=== PATIENT | male | born 1980 | race Caucasian/White ===

== ENCOUNTER 2019-09-01 20:57 | Emergency (ER) | payer BC, SELFPAY ==
[2019-09-01 20:59] VITALS: BP 162/89; PULSE 80; RESP 16; TEMP 36.6; O2SAT 99
--- NOTE | 2019-09-01 21:03 | ECG_ITS ---
Measurements Intervals [place] Rate: 82 P: 40 OH: 171 QRS: 7 QRSD: 101 T: 29 QT: 357 QTc: 418 Interpretive Statements SINUS RHYTHM NORMAL ECG Electronically Signed On 09-02-2019 7:06:13 [employer] by Parmjit Garcia D.O.
[2019-09-01 21:22] LABS: Basophils Percent Auto 0.6 % (0.2-1.2); Eosinophils Absolute Auto 0.3 K/mm3 (0-0.3); Eosinophils Percent Auto 4.3 % (0-4.4); Hematocrit 43.1 % (42.0-52.0); Hemoglobin 15.1 g/dL (14.0-18.0); Immature Granulocyte Absolute 0.02 K/mm3 (0.00-0.031); Immature Granulocyte Percent A 0.3 % (0-0.5); Lymphocytes Absolute Auto 2.27 K/mm3 (0.9-3.2); Mean Corpuscular Hemoglobin 32.4 pg (26-34); Mean Corpuscular Volume 92.5 fl (80-100); Mean Platelet Volume 11.1 fl (7.4-10.4); Monocytes Absolute Auto 0.6 K/mm3 (0.1-0.6); Monocytes Percent Auto 8.4 % (2.6-8.5); Neutrophils Absolute Auto 3.5 K/mm3 (1.3-6.7); Neutrophils Percent Auto 52.4 % (45.5-73.1); Platelet Count Result 204 k/mm3 (150-375); Red Blood Count 4.66 M/mm3 (4.6-6.20); Red Cell Distribution Width 13.2 % (11.5-14.5); White Blood Count 6.7 K/mm3 (4.5-10.0)
[2019-09-01 21:33] LABS: Alanine Aminotransferase 38 U/L (4-50); Albumin Level 4.5 g/dL (3.5-5.1); Alkaline Phosphatase 87 U/L (38-126); Aspartate Amino Transferase 38 U/L (17-59); Bilirubin,Total 0.5 mg/dL (0.2-1.3); Blood Urea Nitrogen 9 mg/dL (9-20); Calcium 9.2 mg/dL (8.4-10.2); Carbon Dioxide 28 mmol/L (22-30); Chloride 103 mmol/L (98-107); Estimated CRCL calculation 177 ml/min; Estimated Glomerular Filt Rate > 60; Glucose 121 mg/dL (75-110); Potassium 3.7 mmol/L (3.4-5.0); Sodium 141 mmol/L (137-145)
--- NOTE | 2019-09-01 21:55 | ED.ARRPALP ---
HPI - Arrhythmia/Palpitations General Chief Complaint: Arrhythmia/Palpitations Stated Complaint: elevated heart rate, flushed Time Seen by Provider: 09/01/19 21:48 Source: patient and RN notes reviewed Mode of arrival: ambulatory Limitations: no limitations History of Present Illness HPI narrative: Pt is a 39 y/o male who presents to the ED with c/o intermittent palpitations starting 2 days ago. He notes that he has had intermittent episodes of irregular heart rate for the past 2 days. Pt reports facial flush and tingling in his legs accompanying his palpitations. He states that he has also had intermittent nausea, but denies any nausea, vomiting, diarrhea, CP, SOB, cough, or fever currently. Pt notes that he hasn't drank any energy drinks or other caffeinated beverages recently. He states that he is not currently having palpitations. MD complaint: palpitations Onset (ago): day(s) (2) Duration: intermittent Associated symptoms: nausea (resolved) and other (facial flush; tingling in legs) Related Data Home Medications Medication Instructions Recorded Confirmed venlafaxine mg PO 09/01/19 venlafaxine mg PO 09/01/19 Allergies Allergy/AdvReac Type Severity Reaction Status Date / Time Penicillins Allergy Mild Rash Verified 09/01/19 21:01 Review of Systems Review of Systems: All systems reviewed & are unremarkable except as noted in HPI and below Constitutional: Constitutional: Reports other (facial flush) Cardiovascular: Cardiovascular: Reports palpitations Gastrointestinal: Gastrointestinal: Denies diarrhea, Reports nausea (resolved) and Denies vomiting Neurologic: Reports tingling (legs) PMFSH Past Medical History Medical History Anxiety Surgical History Surgical History Hx of gastric bypass Social History Social History Smoking status: Never smoker Gender identity (if verbalized by the patient): Male Exam Const: General: cooperative, healthy appearing, comfortable, no acute distress, well developed, alert and awake; No confusion Orientation/consciousness: oriented to person, oriented to place, oriented to time, patient oriented x3 and No confusion Limitations: no limitations Resp: Effort & Inspection: normal respiratory effort, able to speak in complete sentences, no respiratory distress and not tachypneic Auscultation: clear to auscultation bilaterally, no crackles, no rales, no rhonchi and no wheezes Cardio: Rate: regular rate Rhythm: regular rhythm GI: Inspection: normal to inspection GI Palp: No abdominal tenderness, Yes Soft to palpation, No Tenderness to palpation present (GI), No Guarding due to palpation present (GI), No Rigid due to palpation and No Rebound tenderness present Auscultation: normal bowel sounds Skin: General skin exam: normal color, no rashes or lesions noted, elasticity normal and turgor normal Neuro: General: oriented to person, oriented to place, oriented to time, patient oriented x3, tone normal, moves all extremities and No confusion Speech: No Abnormal speech present Sensory Exam: No Sensory deficit (Neuro) Extrem: General: normal to inspection, full ROM and capillary refill normal Psych: Appearance: grossly normal and well kempt Mental Status: mental status grossly normal Speech and movement: Normal speech and movement present Affect: normal affect Attitude: cooperative Thought process: Normal thought process present Thought content: Yes Normal thought content present Insight: Good insight present (Psych) Judgement: Good judgement present (Psych) Course Vital Signs Vital signs: Vital Signs Temperature 36.6 C 09/01/19 20:59 Pulse Rate 80 09/01/19 20:59 Respiratory Rate 16 09/01/19 20:59 Blood Pressure 162/89 H 09/01/19 20:59 Pulse Oximetry 99 09/01/19 20:59 Temperature 36.6 C 09/01/19
[2019-09-01 22:36] LABS: D Dimer 0.32 ug/mL (<0.48)
[2019-09-01 22:49] VITALS: BP 129/85; PULSE 77; RESP 20; O2SAT 100
[2019-09-01 23:45] VITALS: BP 136/87; PULSE 79; RESP 20; O2SAT 98
--- NOTE | 2019-09-02 00:08 | PC.NURSE ---
Pt states he's not happy with his care. Says he feels like he wasn't heard and that his problem didn't get addressed. Pt and his spouse state he didn't have chest issues but felt dizzy and tingly. Pt did however state to this nurse that he felt like his heart was racing upon initial assessment when coming back into the room.
== END 2019-09-01 23:50 | disposition home or self-care (01) ==
PROVIDERS: Emergency Medicine; Emergency Provider Emergency Medicine; PCP Family Medicine
DX: R00.2 Palpitations (principal); Z98.84 Bariatric surgery status; F41.9 Anxiety disorder, unspecified
CPT/HCPCS: 12052; 36415; 80053; 85025; 85380; 93005; 99283

== ENCOUNTER 2019-10-20 12:02 | Emergency (ER) | payer BC, SELFPAY ==
[2019-10-20 12:11] VITALS: BP 137/90; PULSE 82; RESP 18; TEMP 36.7; O2SAT 99
--- NOTE | 2019-10-20 12:43 | ED.GENADULT ---
HPI - General Adult General Chief complaint: Upper Respiratory Infection Stated complaint: headache/sore throat/stomachache/diarrhea History of Present Illness HPI narrative: Patient is a 39-year-old male presents to the urgent care via POV for evaluation of headache that is been present for approximately 2 weeks. He reports headache is located on right side and head pain is intermittent, and sharp in nature. He also reports feeling lightheaded, dry cough, fatigue, sore throat, and diarrhea. He reports 3-4 episodes of diarrhea per day that has been present for approximately 1 week. No relief with cough drops, DayQuil, NyQuil, or extended release Tylenol. Patient is unable to take ibuprofen due to bariatric surgery 1 year ago. Nothing improves or worsen symptoms. Patient reports his employer encouraged him to leave and seek medical treatment prompting today's visit. He did not seek ER services since his employer told him that would automatically place him into quarantine for 2 weeks. Patient states he needs documentation for a couple of days of missed work to return to work. Denies history of COPD, bronchitis, asthma, and pneumonia. Denies current/past tobacco use. Pertinent negatives: fever, sweats, chills, change in appetite, poor p.o. intake, skin color changes, nasal congestion/discharge, dizziness, lymphadenopathy, sinus problems, ear pain/drainage, syncope, vertigo, seizure activity, memory loss, drooling, difficulty with coordination/gait/equilibrium, paresthesias, chest pain, heart murmurs, heart palpitations, shortness of breath, wheezing, cyanosis, hemoptysis, hoarseness, orthopnea, pleuritic pain, nausea, vomiting, bloody stools, abdominal pain, and myalgias. Related Data Home Medications Medication Instructions Recorded Confirmed omeprazole magnesium [Prilosec OTC] 40 mg PO BID 10/20/19 10/20/19 sucralfate [Carafate] 1 g PO QID 10/20/19 10/20/19 venlafaxine [Effexor XR] 75 mg PO TID 10/20/19 10/20/19 Allergies Allergy/AdvReac Type Severity Reaction Status Date / Time Penicillins Allergy Mild Rash Verified 10/20/19 12:24 Review of Systems Review of Systems: Narrative: All other systems reviewed and are negative [facility] Social History Social History Smoking status: Never smoker Gender identity (if verbalized by the patient): Male Exam Narrative: Exam Narrative: GENERAL: Well-appearing, well-nourished, and in no acute distress. HEAD: Normocephalic, atraumatic. No sinus tenderness or facial swelling appreciated. EYES: PERRLA and EOMI. No evidence of erythema, swelling, or drainage. ENT: Bilateral external ears and ear canals normal. Bilateral TMs are normal.No TM perforation. Nares clear, no rhinorrhea or epistaxis. Bilateral turbinates without erythema/ swelling. Mucous membranes moist and pink. Uvula is midline without erythema and swelling. No evidence of petechial rash, cobblestoning, lesions, ulcers, erythema, swelling, exudates, peritonsillar abscess, tenting, or drooling. Breath odor and voice normal. NECK: Supple. No Lymphadenopathy or nuchal rigidity appreciated. CHEST: Bilateral lung reno are clear to auscultation. No respiratory distress. No evidence of cough or pleuritic cp upon examination. HEART: Regular rate and rhythm. No murmur, gallop, or rub heard. SKIN: Warm, dry, no rash. Abdomen: Soft, nontender, nondistended, normal active bowel sounds in all 4 quadrants. No guarding. No rebound tenderness. No pulsating or palpable abdominal masses. No CVAT. NEURO: No focal deficits. Alert and oriented x4. EXTREMITIES: No evidence of decreased ROM or pain with active/passive ROM. Pulses palpable at 2+, strength 5/5, and cap refill < 3 seconds in affected extremity. Bilateral biceps, triceps, knee, and ankle reflexes are 2+. Sensation normal. Gait normal. Kassie Coma Scale Eye Opening: Spontaneous 4 [place] Coma Scale Motor: Obeys
== END 2019-10-20 13:07 | disposition home or self-care (01) ==
PROVIDERS: Emergency Provider Nurse Practitioner Family; PCP Family Medicine
DX: J06.9 Acute upper respiratory infection, unspecified (principal)
CPT/HCPCS: 87804; 99213; G0463

== ENCOUNTER 2019-12-15 10:00 | Outpatient (RCR) | payer OTHER, BC, SELFPAY ==
--- NOTE | 2019-12-01 10:27 | PTOPEVAL ---
PHYSICAL THERAPY EVALUATION AND PLAN OF CARE 12-01-2019 The PT evaluation was completed for the diagnosis of R hip pain, s/p fall. His plan of treatment is scheduled for 2-3 x/week for 2 weeks. The treatment plan includes aquatic exercises-- for the buoyancy effects of the water for ease of motion and increased ability to move. Thank you for referring Pee Hammond to [facility]. Please review, sign, date and return this plan of care HORTENCIA. I agree with and certify that the following plan of care is medically necessary. Referring Physician Date Attending Provider: Kenya Herrera NP *PT Outpatient Evaluation Start: 12/01/19 09:12 Document 12/01/19 09:12 TERELL (Rec: 12/01/19 10:27 TERELL [id number]) Outpatient Past Medical History Past Medical History Source of Past Medical History Patient Neurological History Hx Neurological Disorders No Significant History Cardiovascular History Hx Cardiac Disorders No Significant History Respiratory History Hx Respiratory Disorders No Significant History Gastrointestinal History Hx Gastric Bypass Surgery Yes: 2019; lost about 260#; Genitourinary History Hx Genitourinary Disorders No Significant History Musculoskeletal History Hx Musculoskeletal Disorders No Significant History Hematological History Hx Hematological Disorders No Significant History Endocrine History Hx Endocrine Disorders No Significant History HEENT History Hx Other HEENT Disorders Yes: pt wears contacts Integumentary History Hx Skin Disorders No Significant History Reproductive History Hx Reproductive Disorders No Significant History Psychosocial History Hx Depression Yes: anxiety Pain History History of Any Previous or Ongoing No Significant History Instance of Pain Anesthesia History Hx Anesthesia Reactions No Significant History Evaluation Information Problem Diagnosis R hip pain Onset November 25, 2019 Subjective Information was working, on front end wheel loader operator, 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 landed on R leg- ankle, hip; R leg went numb, 10-15 seconds, sharp pain and burning; went to ER; R arm was swollen and shoulder also hurting; x rays and CT of hip-? hip out of place and popped back in place?; xrays of back, hip, knee, ankle were negative for fractures; since fall, pain still
--- NOTE | 2019-12-08 15:34 | PCPTNOTE ---
Patient called & cancelled scheduled appointment this date due to in the family.
--- NOTE | 2019-12-15 10:46 | PTOPEVAL ---
PHYSICAL THERAPY RE-EVALUATION AND UPDATED PLAN OF CARE 12-15-2019 Pee has received 4 Physical Therapy sessions, from November 30 to today. He called and canceled one appointment due to the of his aunt. Compared to the initial evaluation: pain rating has decreased slightly; reported walking and sitting tolerances have improved; sitting no longer increases his pain; reported sleeping tolerance is worse; R hip ranges of flexion, IR, ER have improved; SLS has increased; slight increase in strength of R hip, but limited due to reports of burning and pain increase with hip movements- abduction is most painful; he is able to stand with equal WB on LE's. He has been doing his home exercises and gradually increasing in his activity level at home--walking about 1 block. Continue PT treatments, 2-3x/week for 3 weeks--land and aquatic exercises. Thank you for referring Mr. Hammond to [facility]. Please review, sign, date and return this plan of care HORTENCIA. I agree with and certify that the following plan of care is medically necessary. 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; has been walking outside, about 1 block then pain increases; has release from work until December 25; doing home exercises; Pain Assessment Timing of Pain Assessment Timing of Pain Assessment Assessment Pain Scale Pain Scale Used Numeric (1 - 10) Self Report Pain Assessment Right Hip(s) Reported Pain Level 4 Pain Description Shooting,Throbbing Radicular Pain Location R heel about 50%- increases when walking- dull, heavy pain Pain Frequency Acute Other Pain Description nerve type pain; dull pain in heel and radiates up leg to R lower back Lowest Pain Intensity 2 Greatest Pain Intensity 6 Pain Aggravating Factors Walking,Weight Bearing/ Standing Other Pain Aggravating Factors walking about one block; hip abduction motion; awaken from pain 1-3x/night Pain Relief Interventions Used By Heat,Ice,Medication Patient Additional Pain Comments can sit one hour without an increase in pain; less popping in R hip; Pain Score Pain Score 4: Self Report Additional Pain Score Comments electrical stim and ice at end of session, due to increased pain;
--- NOTE | 2019-12-22 08:29 | PCPTNOTE ---
Patient did not show up for scheduled appointment this date, called and left voicemail reminding patient about pool therapy session tomorrow 12/22 @ 8am.
--- NOTE | 2019-12-23 08:34 | PCPTNOTE ---
Patient called & cancelled scheduled appointment this date due to getting MRI wanting to hold off on appointment until getting results back.
--- NOTE | 2019-12-30 07:59 | PCPTNOTE ---
Patient called & cancelled all scheduled appointment due to getting surgery.
--- NOTE | 2019-12-30 14:40 | PCPTNOTE ---
PHYSICAL THERAPY DISCHARGE 12-30-2019 Attending Provider: Kenya Herrera NP Patient:Pee Hammond Date of :1980 Pee called and canceled all of his PT appointments. I talked with him today, he stated he is having hip surgery next week. Therefore he will be discharged at this time. His last PT session was the reevaluation on 12-15-2019; refer to it for his status at the last session. Thank you for referring Mr. Hammond to [facility]. Please review, sign, date and return this discharge summary HORTENCIA. I have been updated about the patient's current status and I agree with discharge from the above service at this time. Referring Physician Date
== END 2020-01-02 07:56 | disposition home or self-care (01) ==
LOC: ANHPT 10:00
PROVIDERS: PCP Family Medicine
DX: M25.551 Pain in right hip (principal)
CPT/HCPCS: 97014; 97110; 97140; 97162; G0283

== ENCOUNTER 2020-03-01 08:00 | Outpatient (RCR) | payer OTHER, SELFPAY ==
--- NOTE | 2020-02-17 09:13 | PTOPEVAL ---
PHYSICAL THERAPY EVALUATION AND PLAN OF CARE Thank you for referring Pee Hammond to [facility]. Pee is scheduled to be seen 2x/week for 3weeks. Please review, sign, date and return this plan of care HORTENCIA. I agree with and certify that the following plan of care is medically necessary. Referring Physician Date Evaluation Diagnosis right hip arthroscopic surgery Onset 01/03/2020 Additional Evaluation Detail orders/referal for therapy state to evaluate and treat per therapist discretion with modalities ad dianna; no restrictions for therapy noted Subjective Information Pee is here today following right arthroscopic surgery including a labral tear repair, gluteus anibal repair. He is having a difficult time donning/doffing socks and shoes and having a difficult time stepping into pants. He uses a crutch when he walks longer distances. States that he started using one crutch on 02/06/2020 per physician instruction. Self Report Pain Assessment Right Hip(s) Reported Pain Level 7 Pain Description Aching,Burning,Tightness Pain Frequency Acute,Continuous Lowest Pain Intensity 5 Greatest Pain Intensity 9 Pain Aggravating Factors Stair Climbing,Walking,Weight Bearing/Standing Pain Behaviors None Pain Relief Interventions Used Ice,Inactivity/Rest Hip Range of Motion Right Hip Flexion Range of Motion - Passive 58 Hip Extension Range of Motion - Passive 10 Hip Medial Rotation - Passive 10 Hip Lateral Rotation - Passive 25 Hip Strength Right Hip Flexion Strength 3- Fair - Hip Extension Strength 3 Fair Hip Abduction Strength 3 Fair Hip Strength Comments describes a lot of pulling along front of thigh and into groin during all ROM and strength testing Knee Strength Right Knee Flexion Strength 4+ Good + Knee Extension Strength 4 Good Right Straight Leg Raise Muscle Length 55 Left Straight Leg Raise Muscle Length 70 Palpation trigger points noted to rectus femoris; mildly tender to palpation over right greater trochanter; incision sites are clean and healed well and no significant scar adhesions noted 5 Time Sit to Stand Time in Seconds 37.5 Gait Pattern Antalgic Gait,Trendelenburg Gait Gait Pattern Observed Trunk Lateral Lean - Lef
--- NOTE | 2020-03-07 15:54 | PCPTNOTE ---
PHYSICAL THERAPY DISCHARGE NOTE Patient:Pee Hammond Date of :1980 Pee cancelled all therapy appointments as he was ordered 5x/week therapy and this clinic is unable to accommodate that frequency. He will be discharged at this time. Thank you for referring this patient to [facility]. Please review, sign, date and return this discharge summary HORTENCIA. I have been updated about the patient's current status and I agree with discharge from the above service at this time. Referring Physician Date
== END 2020-03-08 08:01 | disposition home or self-care (01) ==
LOC: ANHPT 08:00
PROVIDERS: PCP Family Medicine
DX: Z48.89 Encounter for other specified surgical aftercare (principal)
CPT/HCPCS: 97110; 97140; 97161

== ENCOUNTER 2020-03-10 18:37 | Emergency (ER) | payer MEDICAID, SELFPAY ==
[2020-03-10 19:03] VITALS: BP 145/97; PULSE 109; RESP 16; TEMP 37.5; O2SAT 100
--- NOTE | 2020-03-10 19:40 | ED.SKABFB ---
HPI - Skin/Abscess/Foreign Bdy General Chief complaint: Skin/Abscess/Foreign Body Stated complaint: Possible spider bite Time Seen by Provider: 03/10/20 19:41 Source: patient and RN notes reviewed Mode of arrival: ambulatory Limitations: no limitations History of Present Illness HPI narrative: 39-year-old male presents with concern for wound to his left foot, possibly a spider bite. Reports last night he was sitting in a restaurant when he felt a painful bite on the dorsal aspect of his foot, reports he swiped something away but was unable to visualize what bit him. Reports 20 minutes later he noticed the skin on the top of his foot had sloughed off, the area became red, swollen, painful. He reports pain is radiating to the ankle into the bottom of his foot. Reports he cleaned the area with soap and water and put antibiotic ointment on the area. He denies any known tick bites, other injury to the foot. He denies any exposure to chemicals, walters. MD complaint: insect bite/sting Related Data Home Medications Medication Instructions Recorded Confirmed omeprazole magnesium [Prilosec OTC] 40 mg PO BID 10/20/19 03/10/20 venlafaxine [Effexor XR] 75 mg PO TID 10/20/19 03/10/20 cyclobenzaprine 10 mg TID PRN 03/10/20 03/10/20 Allergies Allergy/AdvReac Type Severity Reaction Status Date / Time Penicillins Allergy Mild Rash Verified 10/20/19 12:24 Review of Systems Review of Systems: Narrative: CONSTITUTIONAL: Denies malaise, chills, sweats, or fever. CARDIOVASCULAR: Denies chest pain, palpitations RESPIRATORY: Denies dyspnea. GASTROINTESTINAL: Denies nausea, vomiting, diarrhea SKIN: Reports red, painful, open skin on the top of his left foot. MUSCULOSKELETAL: Reports left foot pain NEUROLOGIC: Denies numbness, weakness All systems reviewed & are unremarkable except as noted in HPI and below PMFSH Social History Social History Smoking status: Never smoker Gender identity (if verbalized by the patient): Male Comments At time of signature, agree with nursing past medical, surgical, social and family history. There is no relevant family history pertinent to the presenting complaint Exam Narrative: Exam Narrative: GENERAL: Well-appearing, well-nourished, and in no acute distress. HEAD: Normocephalic, atraumatic. EYES: PERRLA, conjunctivae clear NECK: Supple. CHEST: Speaks in full sentences. No respiratory distress. HEART: Regular rate and rhythm. Normal and equal peripheral pulses. EXTREMITIES: Left foot, digits left foot have has normal strength and sensation, grossly normal range of motion. 5/5 strength with digit and ankle flexion and extension. Normal sensation with sensitivity to light touch and pain. Nearby joints and structures intact. Distal pulses palpable and equal bilaterally, skin warm, dry, pink. Capillary refill less than 3 seconds. SKIN: Warm, dry. 2 x 3 cm area of open skin with beefy red tissue surrounded by 8 x 7 cm area of erythema, induration, tenderness noted to the dorsal aspect of the left foot, streaking noticed approximately 8 cm above the ankle. NEURO: Alert and oriented x3. PSYCH: Normal mood and affect Course Course Emergency Course: Patient is aware of, understands and agrees to be seen in emergency department. Patient agrees to proceed directly to the emergency department. Portions of this record may have been created with voice recognition software Vital Signs Vital signs: Vital Signs Temperature 99.5 F 03/10/20 19:03 Pulse Rate 109 H 03/10/20 19:03 Respiratory Rate 16 03/10/20 19:03 Blood Pressure 145/97 H 03/10/20 19:03 Pulse Oximetry 100 03/10/20 19:03 Temperature 99.5 F 03/10/20 19:03 Pulse Rate 109 H 03/10/20 19:03 Respiratory Rate 16 03/10/20 19:03 Blood Pressure 145/97 H 03/10/20 19:03 Pulse Oximetry 100 03/10/20 19:03 Reviewed. Patient transferred to emergency room, unable to educate about hypertension
== END 2020-03-10 19:42 | disposition short-term general hospital (02) ==
LOC: EXPCOLL 18:56
PROVIDERS: Emergency Provider Nurse Practitioner; PCP Family Medicine
DX: S91.302A Unspecified open wound, left foot, initial encounter (principal); X58.XXXA Exposure to other specified factors, initial encounter; K21.9 Gastro-esophageal reflux disease without esophagitis; F41.9 Anxiety disorder, unspecified; F32.9 Major depressive disorder, single episode, unspecified
CPT/HCPCS: 99212; G0463

== ENCOUNTER 2020-03-10 19:57 | Emergency (ER) | payer MEDICAID, SELFPAY ==
[2020-03-10 20:01] VITALS: BP 171/100; PULSE 122; RESP 17; TEMP 36.6; O2SAT 100
[2020-03-10 20:19] LABS: Basophils Absolute Auto 0.1 K/mm3 (0.0-0.1); Basophils Percent Auto 0.4 % (0.2-1.2); Eosinophils Absolute Auto 0.1 K/mm3 (0-0.3); Hematocrit 44.5 % (42.0-52.0); Hemoglobin 15.6 g/dL (14.0-18.0); Immature Granulocyte Absolute 0.07 K/mm3 (0.00-0.031); Immature Granulocyte Percent A 0.6 % (0-0.5); Lymphocytes Absolute Auto 2.56 K/mm3 (0.9-3.2); Lymphocytes Percent Auto 21.5 % (18.3-44.2); Mean Corpuscular HGB Conc 35.1 g/dl (32-36); Mean Corpuscular Hemoglobin 31.1 pg (26-34); Mean Corpuscular Volume 88.8 fl (80-100); Mean Platelet Volume 10.5 fl (7.4-10.4); Monocytes Percent Auto 8.7 % (2.6-8.5); Neutrophils Absolute Auto 8.1 K/mm3 (1.3-6.7); Neutrophils Percent Auto 67.8 % (45.5-73.1); Platelet Count Result 241 k/mm3 (150-375); Red Blood Count 5.01 M/mm3 (4.6-6.20); Red Cell Distribution Width 13.2 % (11.5-14.5); White Blood Count 11.9 K/mm3 (4.5-10.0)
[2020-03-10 20:35] LABS: Anion Gap 9 mmol/L (8-16); Blood Urea Nitrogen 15 mg/dL (9-20); CRP 0.6 mg/dL (<1.0); Calcium 9.1 mg/dL (8.4-10.2); Carbon Dioxide 22 mmol/L (22-30); Chloride 107 mmol/L (98-107); Estimated CRCL calculation 154 ml/min; Estimated Glomerular Filt Rate > 60; Glucose 105 mg/dL (75-110); Potassium 3.8 mmol/L (3.4-5.0); Sodium 138 mmol/L (137-145)
--- NOTE | 2020-03-10 22:40 | ED.GENADULT ---
HPI - General Adult General Chief complaint: Wound/Laceration Stated complaint: Left foot wound, sent from urgent care Time Seen by Provider: 03/10/20 22:09 Source: patient and family Mode of arrival: ambulatory Limitations: no limitations History of Present Illness HPI narrative: 39-year-old with a history of gastric sleeve, right hip surgery here with complaints of insect bite to his left foot sustained yesterday no complaints of redness, pain. Patient states that he went to urgent care and was later referred here to the ER. Patient denies any fever chills nausea or vomiting. Onset (ago): day(s) (1) Location: lower extremity Severity: moderate Quality: burning Pain Consistency: constant Relieving factors: none Exacerbating factors: none Associated symptoms: denies other symptoms Related Data Home Medications Medication Instructions Recorded Confirmed omeprazole magnesium [Prilosec OTC] 40 mg PO BID 10/20/19 03/10/20 venlafaxine [Effexor XR] 75 mg PO TID 10/20/19 03/10/20 cyclobenzaprine 10 mg TID PRN 03/10/20 03/10/20 Allergies Allergy/AdvReac Type Severity Reaction Status Date / Time Penicillins Allergy Mild Rash Verified 10/20/19 12:24 Review of Systems Review of Systems: All systems reviewed & are unremarkable except as noted in HPI and below Constitutional: Constitutional: Reports no additional constitutional complaints Eyes: Eyes: Reports no additional eye complaints ENT: Reports as per HPI Cardiovascular: Cardiovascular: Reports no additional cardiovascular complaints Respiratory: Respiratory: Reports no additional respiratory complaints Gastrointestinal: Gastrointestinal: Reports no additional gastrointestinal complaints Musculoskeletal: Musculoskeletal: Reports no additional musculoskeletal complaints Neurologic: Reports system reviewed and no additional complaints, except as documented PMFSH Past Medical History Medical History Anxiety Surgical History Surgical History Hx of gastric bypass Social History Social History Smoking status: Never smoker Gender identity (if verbalized by the patient): Male Exam Narrative: Exam Narrative: GENERAL: Well-appearing, well-nourished, and in no acute distress. HEAD: Normocephalic, atraumatic. EYES: PERRLA and EOMI. ENT: Nares clear, no rhinorrhea or epistaxis. Mucous membranes moist. NECK: Supple. CHEST: Clear to auscultation. No respiratory distress. HEART: Regular rate and rhythm. No murmur heard. Normal peripheral pulses.. EXTREMITIES: Normal range of motion. No edema. Left foot Small area of erythematous with few blisters and very minimal erythematous streaks SKIN: Warm, dry, no rash. NEURO: No focal deficits. Alert and oriented x3. PSYCH: Normal mood and affect. Course Vital Signs Vital signs: Vital Signs Temperature 36.6 C 03/10/20 20: Pulse Rate 122 H 03/10/20 20:01 Respiratory Rate 17 03/10/20 20:01 Blood Pressure 171/100 H 03/10/20 20:01 Pulse Oximetry 100 03/10/20 20:01 Temperature 36.6 C 03/10/20 20:01 Pulse Rate 122 H 03/10/20 20:01 Respiratory Rate 17 03/10/20 20:01 Blood Pressure 171/100 H 03/10/20 20:01 Pulse Oximetry 100 03/10/20 20:01 Medical Decision Making [facility] Narrative Medical decision making narrative: Inform patient about his lab work. Advised him to take antibiotic as prescribed if symptoms do not improve in 48 hours or if there is increased swelling, fever advised him to come back to the ER for possible IV antibiotics patient understood the instructions. Differential Diagnosis Differential Diagnosis: Cellulitis, local reaction Vital Signs Vital Signs: Vital Signs Temperature 36.6 C 03/10/20 20:01 Pulse Rate 122 H 03/10/20 20:01 Respiratory Rate 17 03/10/20 20:01 Blood Pressure 171/100 H
[2020-03-10] MEDS: cefTRIAXone 1 GM VIAL IM (23:11)
[2020-03-10] MEDS: LIDOCAINE HCL 1% LOCAL INJ 20 ML VIAL (23:11)
[2020-03-10 23:22] VITALS: BP 162/90; PULSE 102; RESP 18; O2SAT 99
== END 2020-03-10 23:24 | disposition home or self-care (01) ==
PROVIDERS: General Practice; Emergency Provider Family Medicine; PCP Family Medicine
DX: L03.116 Cellulitis of left lower limb (principal); S90.862A Insect bite (nonvenomous), left foot, initial encounter; Z98.84 Bariatric surgery status; F41.9 Anxiety disorder, unspecified; W57.XXXA Bitten or stung by nonvenomous insect and other nonvenomous arthropods, initial encounter
CPT/HCPCS: 36415; 80048; 85025; 86140; 96372; 99283; J0696

== ENCOUNTER 2021-01-08 14:56 | Emergency (ER) | payer MEDICAID, SELFPAY ==
--- NOTE | ~2021-01-08 | XR_ITS ---
EXAMINATION: XR chest 1V portable INDICATION: Fever, cough, and body aches TECHNIQUE: Portable AP chest at 1542 hours COMPARISON: None available FINDINGS: There are patchy opacities of the left mid and lower lung zones. No pleural effusion or pne umothorax is identified. The cardiomediastinal silhouette is normal. The visualized osseous structure s are unremarkable. IMPRESSION: 1. Patchy opacities of the left mid and lower lung zones, consistent with atelectasis versus pneumoni a. Reviewed, dictated and finalized at location B. IMPRESSION: 1. Patchy opacities of the left mid and lower lung zones, consistent with atele ctasis versus pneumonia.
[2021-01-08 15:02] VITALS: BP 149/104; PULSE 118; RESP 20; TEMP 38.2; O2SAT 99
--- NOTE | 2021-01-08 16:23 | ED.GENADULT ---
HPI - General Adult General Chief complaint: Upper Respiratory Infection Stated complaint: cold symptoms Time Seen by Provider: 01/08/21 14:57 Source: patient, family and RN notes reviewed Mode of arrival: ambulatory Limitations: no limitations History of Present Illness HPI narrative: Patient is a 40-year-old male who presents to emergency department for evaluation of upper respiratory symptoms for the last several days with other individuals who are sick at home as well has not been vaccinated for Covid notes cough productive of phlegm sore throat congestion rhinorrhea fever chills patient has not taken anything for his symptoms today. Patient denies vomiting diarrhea Related Data Allergies Allergy/AdvReac Type Severity Reaction Status Date / Time Penicillins Allergy Mild Rash Verified 01/08/21 15:10 Review of Systems Review of Systems: All systems reviewed & are unremarkable except as noted in HPI and below PMFSH Past Medical History Medical History (Updated 01/08/21 @ 16:28 by Maximiliano Rees PA-C) Anxiety Surgical History Surgical History Hx of gastric bypass Social History Social History Smoking status: Never smoker Gender identity (if verbalized by the patient): Male Exam Narrative: Exam Narrative: GENERAL: Well-appearing, well-nourished, and in no acute distress. HEAD: Normocephalic, atraumatic. EYES: PERRLA and EOMI. ENT: Nares clear, no rhinorrhea or epistaxis. Mucous membranes moist. Oropharynx with erythema and without tonsillar hypertrophy exudate or other lesions. NECK: Supple. No adenopathy or masses. CHEST: Clear to auscultation. No respiratory distress. No wheezes rales or rhonchi HEART: Regular rate and rhythm. No murmur heard. Normal peripheral pulses. SKIN: Warm, dry, no rash. NEURO: No focal deficits. Alert and oriented x3. PSYCH: Normal mood and affect. Course Course Emergency Course: Patient presented with upper respiratory symptoms will be swab for Covid and follow with primary care to obtain his results patient is nontoxic at this time hemodynamically stable ABCs intact and stable will be treated for pneumonia given the chest x-ray findings provided with reasons to return patient notes he will follow with primary care tomorrow to set up for reevaluation and to obtain his Covid results no hypoxemia Vital Signs Vital signs: Vital Signs Temperature 100.7 F H 01/08/21 15:02 Pulse Rate 118 H 01/08/21 15:02 Respiratory Rate 20 01/08/21 15:02 Blood Pressure 149/104 H 01/08/21 15:02 Pulse Oximetry 99 01/08/21 15:02 Temperature 100.7 F H 01/08/21 15:02 Pulse Rate 118 H 01/08/21 15:02 Respiratory Rate 20 01/08/21 15:02 Blood Pressure 149/104 H 01/08/21 15:02 Pulse Oximetry 99 01/08/21 15:02 Medical Decision Making MDM Narrative Medical decision making narrative: Patient presented with upper respiratory infection will be treated with medications with outpatient follow-up given reasons to return and agrees with this plan felt appropriate for outpatient reevaluation Vital Signs Vital Signs: Vital Signs Temperature 100.7 F H 01/08/21 15:02 Pulse Rate 118 H 01/08/21 15:02 Respiratory Rate 20 01/08/21 15:02 Blood Pressure 149/104 H 01/08/21 15:02 Pulse Oximetry 99 01/08/21 15:02 Temperature 100.7 F H 01/08/21 15:02 Pulse Rate 118 H 01/08/21 15:02 Respiratory Rate 20 01/08/21 15:02 Blood Pressure 149/104 H 01/08/21 15:02 Pulse Oximetry 99 01/08/21 15:02 Lab Data Labs: Lab Results 01/08/21 Range/Units 15:49 SARS-CoV-2 RNA (RT-PCR) Pending Influenza A Screen Negative Reference Range: Negative Influenza B Screen Negative Reference Range: Negative Strep Screen
[2021-01-08] MEDS: ACETAMINOPHEN 500 MG TABLET 1000 MG PO (16:31)
[2021-01-08] MEDS: ONDANSETRON HCL ODT 4 MG TABLET PO (16:56)
[2021-01-08 17:13] VITALS: BP 153/104; PULSE 118; RESP 18; TEMP 38.3; O2SAT 96
[2021-01-09 17:46] LABS: SARS-CoV-2 RNA PCR Positive
== END 2021-01-08 17:19 | disposition home or self-care (01) ==
PROVIDERS: Emergency Medicine Emergency Medical Services; Emergency Provider Emergency Medicine; PCP Family Medicine
DX: U07.1 COVID-19 (principal); J12.82 Pneumonia due to coronavirus disease 2019; Z98.84 Bariatric surgery status
CPT/HCPCS: 71045; 87081; 87804; 87880; 99283; A9270; C9803; U0003; U0005

== ENCOUNTER 2021-01-16 14:21 | Inpatient (IN) | payer BC, SELFPAY ==
[2021-01-16] VITALS (8 sets, daily range): BP systolic 126–153; BP diastolic 76–93; PULSE 85–106; RESP 18–35; TEMP 37.1–37.6; O2SAT 89–95; BMI 42.0
--- NOTE | ~2021-01-16 | XR_ITS ---
XR chest 2V DATE: 01/16/2021 15:16 INDICATION: Shortness of breath, fever, Covid-positive TECHNIQUE: AP and lateral views COMPARISON: 01/08/2021 portable AP chest FINDINGS: There are prominent patchy consolidating infiltrates scattered in both lungs, with some rig ht upper lobe atelectasis. Normal heart size. No pleural effusion or pneumothorax. IMPRESSION: Extensive patchy bilateral pulmonary infiltrates, most consistent with bilateral pneumoni a Reviewed, dictated and finalized at location A. IMPRESSION: Extensive patchy bilateral pulmonary infiltrates, most consistent w ith bilateral pneumonia
--- NOTE | 2021-01-16 14:27 | ECG_ITS ---
Measurements Intervals Keymar Rate: 88 P: 22 SC: 147 QRS: -1 QRSD: 92 T: 10 QT: 356 QTc: 433 Interpretive Statements SINUS RHYTHM DELAYED PRECORDIAL R/S TRANSITION VOLTAGE CRITERIA FOR LVH CONSIDER INFERIOR INFARCT, AGE INDETERMINATE BASELINE ARTIFACT- III, AVF, V5-V6 ABNORMAL ECG Electronically Signed On 01-16-2021 16:24:29 CDT by Parmjit Garcia D.O.
[2021-01-16 14:51] LABS: Basophils Percent Auto 0.2 % (0.2-1.2); Hematocrit 46.7 % (42.0-52.0); Hemoglobin 16.1 g/dL (14.0-18.0); Immature Granulocyte Absolute 0.02 K/mm3 (0.00-0.031); Immature Granulocyte Percent A 0.4 % (0-0.5); Lymphocytes Absolute Auto 0.95 K/mm3 (0.9-3.2); Lymphocytes Percent Auto 20.6 % (18.3-44.2); Mean Corpuscular HGB Conc 34.5 g/dl (32-36); Mean Corpuscular Hemoglobin 30.7 pg (26-34); Mean Corpuscular Volume 89.1 fl (80-100); Mean Platelet Volume 10.6 fl (7.4-10.4); Monocytes Absolute Auto 0.2 K/mm3 (0.1-0.6); Monocytes Percent Auto 3.9 % (2.6-8.5); Neutrophils Absolute Auto 3.5 K/mm3 (1.3-6.7); Neutrophils Percent Auto 74.9 % (45.5-73.1); Platelet Count Result 180 k/mm3 (150-375); Red Blood Count 5.24 M/mm3 (4.6-6.20); Red Cell Distribution Width 13.1 % (11.5-14.5); White Blood Count 4.6 K/mm3 (4.5-10.0)
[2021-01-16 15:01] LABS: Alanine Aminotransferase 68 U/L (4-50); Albumin Level 3.8 g/dL (3.5-5.1); Alkaline Phosphatase 78 U/L (38-126); Anion Gap 9 mmol/L (8-16); Aspartate Amino Transferase 158 U/L (17-59); Bilirubin,Total 0.6 mg/dL (0.2-1.3); Blood Urea Nitrogen 11 mg/dL (9-20); Calcium 8.5 mg/dL (8.4-10.2); Carbon Dioxide 26 mmol/L (22-30); Chloride 102 mmol/L (98-107); Estimated CRCL calculation 184 ml/min; Estimated Glomerular Filt Rate > 60; Glucose 147 mg/dL (75-110); Potassium 3.7 mmol/L (3.4-5.0); Sodium 137 mmol/L (137-145)
--- NOTE | 2021-01-16 15:30 | PC.NURSE ---
Pt placed on 2 L NC O2 due to 89% on room air and c/o feeling SOB. Pt repositioned upright, O2 sat 94% at this time.
--- NOTE | 2021-01-16 16:15 | ED.SOB ---
HPI - SOB/Dyspnea General Chief Complaint: Shortness of Breath/Dyspnea Stated Complaint: covid +, SOB Time Seen by Provider: 01/16/21 15:40 History of Present Illness HPI Narrative: Patient is a 40-year-old male who presents ER with shortness of breath. Diagnosed with COVID-19 last week. He is on day 10 of symptoms.'s been having fevers and chills as well as weakness. Shortness of breath is worsening over the last 3 days and opted to come in for further evaluation. He was not vaccinated against Covid. No chest pain or chest pressure. No additional concerns. Related Data Allergies Allergy/AdvReac Type Severity Reaction Status Date / Time Penicillins Allergy Mild Rash Verified 01/16/21 15:29 Review of Systems Review of Systems: All systems reviewed & are unremarkable except as noted in HPI and below Constitutional: Constitutional: Reports chills, Reports fatigue, Reports fever(s) and Reports weakness ENT: Denies nasal congestion and Denies sore throat Comments: No loss of taste or smell Cardiovascular: Cardiovascular: Denies chest pain and Denies radiating jaw, neck or arm pain Respiratory: Respiratory: Reports cough, Reports dyspnea and Denies wheezing Gastrointestinal: Gastrointestinal: Denies abdominal pain, Denies nausea and Denies vomiting PMFSH Past Medical History Medical History (Updated 01/16/21 @ 16:40 by Bogdan Butterfield MD) Anxiety Surgical History Surgical History Hx of gastric bypass Social History Social History Smoking status: Never smoker Gender identity (if verbalized by the patient): Male Exam Narrative: Exam Narrative: GENERAL: Fatigue-appearing, well-nourished, and in no acute distress. HEAD: Normocephalic, atraumatic. EENT: EOMI CHEST: Clear to auscultation. No respiratory distress. HEART: Regular rate and rhythm. Normal peripheral pulses. EXTREMITIES: Normal range of motion. No edema. SKIN: Warm, dry, no rash. NEURO: No focal deficits. Alert and oriented x3. PSYCH: Normal mood and affect. Course Course Emergency Course: Patient informed of diagnosis and treatment plan. Admit to hospitalist service. Vital Signs Vital signs: Vital Signs Temperature 99.6 F 01/16/21 14:24 Pulse Rate 106 H 01/16/21 14:24 Respiratory Rate 18 01/16/21 14:24 Blood Pressure 131/93 H 01/16/21 14:24 Pulse Oximetry 91 01/16/21 14:24 Temperature 99.6 F 01/16/21 14:24 Pulse Rate 98 01/16/21 16:20 Respiratory Rate 35 H 01/16/21 16:20 Blood Pressure 139/76 01/16/21 16:20 Pulse Oximetry 95 01/16/21 16:20 MDM - SOB/Dyspnea Lab Data Result diagrams: 01/16/21 14:45 01/16/21 14:45 Labs: Lab Results 01/16/21 01/16/21 01/16/21 Range/Units 14:45 14:45 16:31 WBC 4.6 (4.5-10.0) K/mm3 RBC 5.24 (4.6-6.20) M/mm3 Hgb 16.1 (14.0-18.0) g/dL Hct 46.7 (42.0-52.0) % MCV 89.1 (80-100) fl MCH 30.7 (26-34) pg MCHC 34.5 (32-36) g/dl RDW 13.1 (11.5-14.5) % Plt Count 180 (150-375) k/mm3 MPV 10.6 H (7.4-10.4) fl Immature Gran % (Auto) 0.4 (0-0.5) % Neut % (Auto) 74.9 H (45.5-73.1) % Lymph % (Auto) 20.6 (18.3-44.2) % Mcintosh % (Auto) 3.9 (2.6-8.5) % Eos % (Auto) 0.0 (0-4.4) % Baso % (Auto) 0.2 (0.2-1.2) % Lymph # (Auto) 0.95 (0.9-3.2) K/mm3 Mcintosh # (Auto) 0.2 (0.1-0.6) K/mm3 Eos # (Auto) 0.0 (0-0.3) K/mm3 Baso # (Auto) 0.0 (0.0-0.1) K/mm3 Abs Immat Gran (auto) 0.02 (0.00-0.031) K/mm3 Absolute Neuts (auto) 3.5 (1.3-6.7) K/mm3 Absolute Nucleated RBC 0.0 (0.0-0.012) K/mm3 Nucleated RBC % 0.0 (0.0-0.2) % D-Dimer Pending Sodium 137 (137-145) mmol/L Potassium 3.7 (3.4-5.0) mmol/L Chloride 102 (98-107) mmol/L Carbon Dioxide 26 (22-30) mmol/L Anion Gap 9 (8-16) mmol/L BUN 11 (9-20) mg/dL
[2021-01-16] MEDS: DEXAMETHASONE SOD PHOS INJ 4 MG/ML VIAL 6 MG IV PUSH (16:19)
[2021-01-16 16:51] LABS: D Dimer 1.61 ug/mL (<0.48)
--- NOTE | 2021-01-16 17:28 | PM.IMHP ---
H&P: HPI History of Present Illness Date/Time: 01/16/21 17:28 Chief Complaint: Shortness of breath Narrative: 40-year-old male past medical history significant for gastric sleeve, right hip surgery and recent ED visit due to upper respiratory infection 629 presented with complaints of worsening shortness of breath. He reports developing fever chills with upper respiratory symptoms and cough with congestion for the past several days. He presented to the ED 01/08 with similar complaints and was tested for COVID-19 which resulted positive. At that time his oxygen saturations were greater than 92% and he was discharged with symptomatic treatment and outpatient follow-up. patient has not been vaccinated for COVID-19. He followed up with his PCP who had advised him to keep a check on his oxygen saturations and seek medical care in case saturations were to drop below 92%. Patient continued to have fever, chills, shortness of breath and dyspnea on exertion. In addition patient also complains of diarrhea, nausea and decreased appetite. Patient presented to the ED when he noticed that his oxygen saturations had dropped to 86% on room air. In the ED he received 1 dose of Decadron and a chest x-ray, which appeared to have worsened when compared to the last one done on 01/08. patient is being admitted for further care of COVID-19. Review of Systems Review of Systems: Narrative: a 10 point review systems conducted which was found to be negative pertinent positives as per the HPI [facility] Past Medical History Medical History (Updated 01/16/21 @ 16:40 by Bogdan Butterfield MD) Anxiety Surgical History Surgical History Hx of gastric bypass Social History Social History Smoking status: Never smoker Second hand tobacco smoke exposure: No Alcohol intake: never Substance use: never Gender identity (if verbalized by the patient): Male Sexual Orientation (if Verbalized by the Patient): Straight or Heterosexual Spiritual care concerns: No Meds Home Medications and Allergies Home Medications Medication Instructions Recorded Confirmed Type albuterol sulfate 2 puff INHALATION QID PRN #1 g 01/08/21 Rx azithromycin [Zithromax Z-Drew] See Rx Instructions .ROUTE 01/08/21 Rx .COMPLEX #6 tablet famotidine [Pepcid] 20 mg PO BID #14 tablet 01/08/21 Rx fluticasone furoate [Flonase 2 spray INTRANASAL DAILY #9.1 ml 01/08/21 Rx Sensimist] loratadine [Claritin] 10 mg PO DAILY PRN #10 tablet 01/08/21 Rx Allergies Allergy/AdvReac Type Severity Reaction Status Date / Time Penicillins Allergy Mild Rash Verified 01/16/21 17:38 Vital Signs Vital Signs - 24 hr 01/16/21 14:24 01/16/21 15:28 01/16/21 15:29 Temperature 99.6 F Pulse Rate 106 H 97 Respiratory Rate 18 Blood Pressure 131/93 H Pulse Oximetry 91 89 L 01/16/21 15:32 01/16/21 16:20 Temperature Pulse Rate 93 98 Respiratory Rate 33 H 35 H Blood Pressure 126/76 139/76 Pulse Oximetry 94 95 Exam Const: General: cooperative, alert, awake and in distress Nutritional Appearance: obese Orientation/consciousness: patient oriented x3 HENMT: Head: normal to inspection Eyes: General: appearance normal, both eyes and all related structures Neck: Neck: normal visual inspection and no JVD Thyroid: thyroid normal Resp: Auscultation: rhonchi and diminished lung sounds Cardio: Jugular venous distension: no JVD Rate: regular rate Rhythm: regular rhythm Heart sounds: S1 normal heart sound present and S2 normal heart sound present GI: Inspection: normal to inspection Percussion: No normal to percussion, No dullness to percussion, No Fluid wave present, No tympanic to percussion and No other Skin: General skin exam: normal color and no rashes or lesions noted Neuro: General: patient oriented x3, gait normal and tone normal Extrem: Gene
--- NOTE | 2021-01-16 17:34 | ADMGEN ---
This patient, Pee Hammond, was admitted to [facility] Surg Room 326-01. Patient/family oriented to hospital policies and general routines including ID bracelet, bed and alarms, visiting hours, pain management, procedures, bathroom and other care routines, personal items, smoking policy, room service/diet, and visiting hours. Information on how to activate the Rapid Response Team has been discussed. Patient/Family are encouraged to report perceived risks to care and to ask questions if they do not understand what they are told or what they should do.
[2021-01-16] MEDS: ONDANSETRON INJ 4 MG/2 ML VIAL IV PUSH (17:58)
[2021-01-16] MEDS: HYDROcodone/acetaminophen (*CRX) 5-325 MG TABLET 1 TAB PO (17:58)
[2021-01-16] MEDS: REMDESIVIR 200 MG/NS 250 ML 200 MG/250 ML BAG 250 MG IVPB (18:40)
[2021-01-16] MEDS: BENZONATATE 100 MG CAPSULE PO (18:40)
[2021-01-16] MEDS: ACETAMINOPHEN 325 MG TABLET 650 MG PO (20:57)
[2021-01-16] MEDS: BENZOCAINE/MENTHOL (*BKC) 18 EA LOZENGE 1 LOZENGE PO (20:57)
[2021-01-16] MEDS: FAMOTIDINE 10 MG TABLET PO (20:58)
[2021-01-17] VITALS (8 sets, daily range): BP systolic 138–150; BP diastolic 80–88; PULSE 76–85; RESP 20–24; TEMP 36.3–37; O2SAT 90–94
[2021-01-17 06:23] LABS: Hemoglobin 15.3 g/dL (14.0-18.0); Immature Granulocyte Absolute 0.02 K/mm3 (0.00-0.031); Immature Granulocyte Percent A 0.6 % (0-0.5); Lymphocytes Absolute Auto 0.56 K/mm3 (0.9-3.2); Lymphocytes Percent Auto 16.2 % (18.3-44.2); Mean Corpuscular Hemoglobin 30.8 pg (26-34); Mean Corpuscular Volume 90.5 fl (80-100); Mean Platelet Volume 10.5 fl (7.4-10.4); Monocytes Absolute Auto 0.2 K/mm3 (0.1-0.6); Monocytes Percent Auto 6.9 % (2.6-8.5); Neutrophils Absolute Auto 2.6 K/mm3 (1.3-6.7); Neutrophils Percent Auto 76.3 % (45.5-73.1); Platelet Count Result 186 k/mm3 (150-375); Red Blood Count 4.97 M/mm3 (4.6-6.20); White Blood Count 3.5 K/mm3 (4.5-10.0)
[2021-01-17 06:31] LABS: INR 1.3
[2021-01-17 06:34] LABS: D Dimer 1.44 ug/mL (<0.48)
[2021-01-17 06:41] LABS: Alanine Aminotransferase 82 U/L (4-50); Albumin Level 3.7 g/dL (3.5-5.1); Alkaline Phosphatase 67 U/L (38-126); Anion Gap 7 mmol/L (8-16); Aspartate Amino Transferase 166 U/L (17-59); Bilirubin,Total 0.5 mg/dL (0.2-1.3); Blood Urea Nitrogen 12 mg/dL (9-20); Calcium 8.6 mg/dL (8.4-10.2); Carbon Dioxide 30 mmol/L (22-30); Chloride 99 mmol/L (98-107); Estimated CRCL calculation 164 ml/min; Estimated Glomerular Filt Rate > 60; Glucose 167 mg/dL (75-110); Magnesium 2.3 mg/dL (1.6-2.3); Potassium 4.3 mmol/L (3.4-5.0); Sodium 136 mmol/L (137-145)
[2021-01-17] MEDS: guaiFENesin 200 MG/10 ML UDC PO ×2 (06:47→21:14)
[2021-01-17] MEDS: ZINC SULFATE 220 MG CAPSULE PO (09:36)
[2021-01-17] MEDS: FAMOTIDINE 10 MG TABLET PO ×2 (09:37→21:09)
[2021-01-17] MEDS: ENOXAPARIN 40 MG/0.4 ML SYRINGE SUB-Q (09:37)
[2021-01-17] MEDS: BENZONATATE 100 MG CAPSULE PO ×3 (09:37→17:47)
[2021-01-17] MEDS: ASCORBIC ACID 250 MG TABLET PO (09:37)
[2021-01-17 10:15] LABS: Ferritin > 2000.00 ng/mL (17.9-464)
[2021-01-17] MEDS: HYDROcodone/acetaminophen (*CRX) 5-325 MG TABLET 1 TAB PO (13:52)
--- NOTE | 2021-01-17 18:12 | PM.IMPN ---
Progress Note: A&P Assessment and Plan (1) Pneumonia due to 2019-nCoV: Code(s): U07.1 - COVID-19; J12.82 - Pneumonia due to coronavirus disease 2019 Status: Acute Assessment and Plan: patient started on Remdesivir day 2 IV Decadron 10 mg daily Zofran, cough medications, albuterol inhaler p.r.n. vitamin-C and zinc ordered (2) Acute respiratory failure with hypoxia: Code(s): J96.01 - Acute respiratory failure with hypoxia Status: Acute Assessment and Plan: currently on 2 L of oxygen Continue to wean as able (3) Elevated transaminase level: Code(s): R74.01 - Elevation of levels of liver transaminase levels Status: Acute Assessment and Plan: elevated AST and ALT Continue REM the severe as can be tolerated with AST and ALT levels above 10 times the upper limit of normal (4) Elevated d-dimer: Code(s): R79.89 - Other specified abnormal findings of blood chemistry Status: Acute Assessment and Plan: noted to be downtrending Will hold off on therapeutic dose of anticoagulation however will co (5) H/O gastric bypass: Code(s): Z98.84 - Bariatric surgery status Status: Acute Assessment and Plan: Stable (6) Anxiety: Code(s): F41.9 - Anxiety disorder, unspecified Status: Acute Assessment and Plan: stable Subjective Date/time seen: 01/17/21 18:12 Interval history: continues to require oxygen Is continuing to feel shortness of breath Diarrhea and abdominal pain with nausea have improved significantly next Review of Systems Review of Systems: Narrative: 10 point review of system was conducted which was otherwise negative Exam Const: General: cooperative HENMT: Head: normal to inspection Ears: hearing grossly normal bilaterally General nose exam: Normal external nose present Mouth: Yes Normal oral and palatal mucosa present Eyes: General: appearance normal, both eyes and all related structures Resp: Effort & Inspection: normal respiratory effort Auscultation: diminished lung sounds Percussion: percussion normal Cardio: Jugular venous distension: no JVD Rate: regular rate Rhythm: regular rhythm Heart sounds: S1 normal heart sound present and S2 normal heart sound present GI: Inspection: normal to inspection GI Palp: Yes Soft to palpation and Yes No hepatosplenomegaly present Percussion: Yes normal to percussion Auscultation: normal bowel sounds Back/Spine/Pelvis: Back: no CVA tenderness Skin: General skin exam: normal color Lesions: no lesions Rashes: no rashes Trauma: no lacerations or abrasions Neuro: General: patient oriented x3 Extrem: General: normal to inspection, full ROM and capillary refill normal Psych: Appearance: grossly normal Objective Data Vital Signs Vital Signs: Vital Signs - 24 hr 01/16/21 20:00 01/17/21 00:00 01/17/21 03:52 Temperature 99.3 F 98.6 F 97.8 F Pulse Rate 85 78 83 Respiratory Rate 20 20 20 Blood Pressure 153/89 H 143/81 H 144/80 H Pulse Oximetry 94 94 94 01/17/21 04:00 01/17/21 08:00 01/17/21 12:00 Temperature 98.1 F 98.5 F Pulse Rate 83 84 81 Respiratory Rate 24 H 24 H Blood Pressure 144/80 H 138/81 Pulse Oximetry 91 93 01/17/21 16:00 Temperature 97.7 F Pulse Rate 80 Respiratory Rate 20 Blood Pressure 140/88 Pulse Oximetry 94 Intake/Output Intake/Output: Intake & Output 01/14/21 01/15/21 01/16/21 01/17/21 23:59 23:59 23:59 23:59 Intake Total 250 1070 Balance 250 1070 Meds/Results Medications: Active Medications Generic Name Dose Route Start Last Admin Trade Name Freq PRN Reason Stop Dose Admin Acetaminophen 650 mg 01/16/21 16:13 01/16/21 20:57 Acetaminophen 325 Mg Tablet PO 650 mg Q4H PRN Administration Mild Pain (1-3) or Fever Hydrocodone Bitart/Acetaminophen 1 tab 01/16/21 16:13 01/17/21 13:52 Hydrocodone/Acetaminophen (*Crx) 5-325 Mg Tablet PO 1 tab Q4H PRN Admin
[2021-01-17] MEDS: REMDESIVIR 100 MG/NS 250 ML 100 MG/250 ML BAG 250 MG IVPB (21:09)
[2021-01-18] VITALS (12 sets, daily range): BP systolic 133–143; BP diastolic 75–82; PULSE 64–83; RESP 16–20; TEMP 36.4–36.6; O2SAT 92–95
[2021-01-18 06:23] LABS: Alanine Aminotransferase 88 U/L (4-50); Estimated CRCL calculation 189 ml/min; Estimated Glomerular Filt Rate > 60
[2021-01-18 06:29] LABS: Alanine Aminotransferase 88 U/L (4-50); Albumin Level 3.6 g/dL (3.5-5.1); Alkaline Phosphatase 65 U/L (38-126); Anion Gap 7 mmol/L (8-16); Aspartate Amino Transferase 123 U/L (17-59); Bilirubin,Total 0.6 mg/dL (0.2-1.3); Blood Urea Nitrogen 16 mg/dL (9-20); Calcium 8.5 mg/dL (8.4-10.2); Carbon Dioxide 29 mmol/L (22-30); Chloride 100 mmol/L (98-107); Estimated CRCL calculation 189 ml/min; Estimated Glomerular Filt Rate > 60; Glucose 228 mg/dL (75-110); Magnesium 2.3 mg/dL (1.6-2.3); Potassium 3.9 mmol/L (3.4-5.0); Sodium 136 mmol/L (137-145)
[2021-01-18 06:30] LABS: Basophils Percent Auto 0.2 % (0.2-1.2); Hematocrit 44.1 % (42.0-52.0); Hemoglobin 15.2 g/dL (14.0-18.0); Immature Granulocyte Absolute 0.04 K/mm3 (0.00-0.031); Immature Granulocyte Percent A 0.8 % (0-0.5); Lymphocytes Absolute Auto 0.74 K/mm3 (0.9-3.2); Lymphocytes Percent Auto 15.7 % (18.3-44.2); Mean Corpuscular HGB Conc 34.5 g/dl (32-36); Mean Corpuscular Hemoglobin 30.8 pg (26-34); Mean Corpuscular Volume 89.5 fl (80-100); Mean Platelet Volume 10.4 fl (7.4-10.4); Monocytes Absolute Auto 0.5 K/mm3 (0.1-0.6); Monocytes Percent Auto 10.6 % (2.6-8.5); Neutrophils Absolute Auto 3.4 K/mm3 (1.3-6.7); Neutrophils Percent Auto 72.7 % (45.5-73.1); Platelet Count Result 237 k/mm3 (150-375); Red Blood Count 4.93 M/mm3 (4.6-6.20); Red Cell Distribution Width 12.7 % (11.5-14.5); White Blood Count 4.7 K/mm3 (4.5-10.0)
[2021-01-18 06:37] LABS: INR 1.5; Prothrombin Time 17.7 Seconds (11.1-14.7)
[2021-01-18 08:41] LABS: Ferritin > 2000.00 ng/mL (17.9-464)
[2021-01-18] MEDS: ENOXAPARIN 40 MG/0.4 ML SYRINGE SUB-Q (10:00)
[2021-01-18] MEDS: ASCORBIC ACID 250 MG TABLET PO (10:00)
[2021-01-18] MEDS: ZINC SULFATE 220 MG CAPSULE PO (10:00)
[2021-01-18] MEDS: BENZONATATE 100 MG CAPSULE PO ×3 (10:00→16:53)
[2021-01-18] MEDS: guaiFENesin 200 MG/10 ML UDC PO (10:02)
--- NOTE | 2021-01-18 14:46 | PM.IMPN ---
Progress Note: A&P Assessment and Plan (1) Anxiety: Code(s): F41.9 - Anxiety disorder, unspecified Status: Acute (2) H/O gastric bypass: Code(s): Z98.84 - Bariatric surgery status Status: Acute (3) Elevated d-dimer: Code(s): R79.89 - Other specified abnormal findings of blood chemistry Status: Acute Assessment and Plan: continue monitoring D-dimer daily if uptrend is noted, will likely need to be started on therapeutic dose of Lovenox (4) Elevated transaminase level: Code(s): R74.01 - Elevation of levels of liver transaminase levels Status: Acute Assessment and Plan: elevated AST and ALT Continue Remdesivir as can be tolerated with AST and ALT levels above 10 times the upper limit of normal (5) Acute respiratory failure with hypoxia: Code(s): J96.01 - Acute respiratory failure with hypoxia Status: Acute (6) Pneumonia due to 2019-nCoV: Code(s): U07.1 - COVID-19; J12.82 - Pneumonia due to coronavirus disease 2018 Status: Acute Assessment and Plan: patient on Remdesivir day3 IV Decadron 10 mg daily Will require to complete a full 5 day course of Remdesivir If continues to worsen or if oxygen requirements were to escalate, patient would likely need ID consult and possible escalation of therapy (7) Hypoxia: Code(s): R09.02 - Hypoxemia Status: Acute Subjective Date/time seen: 01/18/21 14:46 Interval history: 40-year-old male past medical history significant for gastric sleeve, right hip surgery and recent diagnosis of COVID-19 01/08 presented with complaints of worsening shortness of breath. He is being managed as a case of COVID pneumonia and acute hypoxic respiratory failure. patient is currently on 3 L of oxygen. He reports better appetite, decrease nausea, however continues to complain of shortness of breath. He has been advised pronating himself however reports that it is difficult for him. he has not been advised to lay on his side if possible. he will continue to require total of 5 days of Remdesivir. Review of Systems Review of Systems: Narrative: Ten point review of system was conducted and was otherwise negative Exam Const: General: cooperative HENMT: Head: normal to inspection Face and sinus: normal facial exam Neck: Neck: normal visual inspection Chest: Chest palpation & inspection: normal inspection of the chest Resp: Effort & Inspection: normal respiratory effort Auscultation: diminished lung sounds Percussion: percussion normal Cardio: Jugular venous distension: no JVD Palpation: normal PMI Rate: regular rate Rhythm: regular rhythm Heart sounds: S1 normal heart sound present and S2 normal heart sound present GI: Inspection: normal to inspection GI Palp: Yes Soft to palpation Percussion: Yes normal to percussion Auscultation: normal bowel sounds Back/Spine/Pelvis: Back: no CVA tenderness Skin: General skin exam: normal color Neuro: General: patient oriented x3 Extrem: General: normal to inspection Psych: Appearance: grossly normal Objective Data Vital Signs Vital Signs: Vital Signs - 24 hr 01/17/21 16:00 01/17/21 20:00 01/17/21 23:51 Temperature 97.7 F 97.3 F L 97.8 F Pulse Rate 79 77 85 Respiratory Rate 20 20 20 Blood Pressure 140/88 150/82 H 150/85 H Pulse Oximetry 94 93 90 01/18/21 00:00 01/18/21 04:00 01/18/21 04:02 Temperature 97.5 F L Pulse Rate 76 69 67 Respiratory Rate 20 Blood Pressure 138/76 Pulse Oximetry 94 01/18/21 08:00 01/18/21 10:00 01/18/21 12:00 Temperature 97.6 F 97.9 F Pulse Rate 64 72 Respiratory Rate 16 18 Blood Pressure 142/80 H 133/82 Pulse Oximetry 94 93 94 01/18/21 13:57 Temperature Pulse Rate Respiratory Rate Blood Pressure Pulse Oximetry 94 Intake/Output Intake/Output: Intake & Output 01/15/21 01/16/21 01/17/21 01/18/21 23:59 23:59 23:59 23:59 Intake Total 250 1420 1520
[2021-01-18] MEDS: FAMOTIDINE 10 MG TABLET PO ×2 (16:52→21:54)
[2021-01-18] MEDS: ALBUTEROL SULFATE NEB 2.5 MG/0.5 ML INH INHALATION (21:31)
[2021-01-18] MEDS: IPRATROPIUM BR 0.02% INH SOLN 0.5 MG/2.5 ML VIAL INHALATION (21:32)
[2021-01-18] MEDS: REMDESIVIR 100 MG/NS 250 ML 100 MG/250 ML BAG 250 MG IVPB (21:54)
[2021-01-19] VITALS (14 sets, daily range): BP systolic 123–145; BP diastolic 67–81; PULSE 58–86; RESP 16–20; TEMP 36.2–36.7; O2SAT 91–95
[2021-01-19] MEDS: IPRATROPIUM BR 0.02% INH SOLN 0.5 MG/2.5 ML VIAL INHALATION ×4 (02:47→21:57)
[2021-01-19] MEDS: ALBUTEROL SULFATE NEB 2.5 MG/0.5 ML INH INHALATION ×4 (02:47→21:57)
[2021-01-19 06:31] LABS: Basophils Percent Auto 0.2 % (0.2-1.2); Hematocrit 40.4 % (42.0-52.0); Hemoglobin 14.3 g/dL (14.0-18.0); Immature Granulocyte Absolute 0.05 K/mm3 (0.00-0.031); Immature Granulocyte Percent A 0.8 % (0-0.5); Lymphocytes Absolute Auto 0.62 K/mm3 (0.9-3.2); Lymphocytes Percent Auto 10.4 % (18.3-44.2); Mean Corpuscular HGB Conc 35.4 g/dl (32-36); Mean Corpuscular Hemoglobin 31.2 pg (26-34); Mean Corpuscular Volume 88.2 fl (80-100); Mean Platelet Volume 9.8 fl (7.4-10.4); Monocytes Absolute Auto 0.6 K/mm3 (0.1-0.6); Monocytes Percent Auto 10.3 % (2.6-8.5); Neutrophils Absolute Auto 4.7 K/mm3 (1.3-6.7); Neutrophils Percent Auto 78.3 % (45.5-73.1); Platelet Count Result 240 k/mm3 (150-375); Red Blood Count 4.58 M/mm3 (4.6-6.20); Red Cell Distribution Width 12.5 % (11.5-14.5); White Blood Count 5.9 K/mm3 (4.5-10.0)
[2021-01-19 06:39] LABS: INR 1.4; Prothrombin Time 17.1 Seconds (11.1-14.7)
[2021-01-19 06:42] LABS: Alanine Aminotransferase 86 U/L (4-50); Albumin Level 3.4 g/dL (3.5-5.1); Alkaline Phosphatase 60 U/L (38-126); Anion Gap 7 mmol/L (8-16); Aspartate Amino Transferase 80 U/L (17-59); Bilirubin,Total 0.6 mg/dL (0.2-1.3); Blood Urea Nitrogen 18 mg/dL (9-20); Calcium 8.1 mg/dL (8.4-10.2); Carbon Dioxide 28 mmol/L (22-30); Chloride 101 mmol/L (98-107); D Dimer 0.51 ug/mL (<0.48); Estimated CRCL calculation 189 ml/min; Estimated Glomerular Filt Rate > 60; Glucose 267 mg/dL (75-110); Sodium 136 mmol/L (137-145)
[2021-01-19] MEDS: BENZONATATE 100 MG CAPSULE PO ×3 (08:35→18:23)
[2021-01-19] MEDS: ASCORBIC ACID 250 MG TABLET PO (08:35)
[2021-01-19] MEDS: FAMOTIDINE 10 MG TABLET PO ×2 (08:35→21:52)
[2021-01-19] MEDS: ZINC SULFATE 220 MG CAPSULE PO (08:35)
[2021-01-19] MEDS: ENOXAPARIN 40 MG/0.4 ML SYRINGE SUB-Q ×3 (08:36→21:52)
[2021-01-19 15:50] LABS: Hemoglobin A1C 5.9 % (<5.7)
--- NOTE | 2021-01-19 15:58 | PM.IMPN ---
Progress Note: A&P Assessment and Plan (1) Pneumonia due to 2019-nCoV: Code(s): U07.1 - COVID-19; J12.82 - Pneumonia due to coronavirus disease 2019 Status: Acute Assessment and Plan: Pt tested positive 01/08/21 and came in on 01/16/21 for worsening SOB requiring o2 -Continue remdesivir (day 4), decadron, and lovenox -Continue o2 to keep o2 >90. He is currently on 3L of o2 -Continue breathing treatments -Pt unvaccinated but plans on getting the vaccine in 3 months after acute infection -PE unlikely, d-dimer barely elevated and trending down. Consider CTA if pt worsens. (2) Acute respiratory failure with hypoxia: Code(s): J96.01 - Acute respiratory failure with hypoxia Status: Acute Assessment and Plan: 2/2 to above -continue O2 (3) Elevated transaminase level: Code(s): R74.01 - Elevation of levels of liver transaminase levels Status: Acute Assessment and Plan: Likely due to acute COVID infection -Monitor while on remdesivir -trending down (4) Elevated d-dimer: Code(s): R79.89 - Other specified abnormal findings of blood chemistry Status: Acute Assessment and Plan: As noted above (5) H/O gastric bypass: Code(s): Z98.84 - Bariatric surgery status Status: Acute Assessment and Plan: Pt needs to continue vitamin supplementation -check iron and b12 in the AM (6) Anxiety: Code(s): F41.9 - Anxiety disorder, unspecified Status: Acute Assessment and Plan: Chronic and stable (7) Hyperglycemia: Code(s): R73.9 - Hyperglycemia, unspecified Status: Acute Assessment and Plan: Elevated to 267 this morning with an A1c of 5.9 -likely due to steroids and acute illness -will do SSI while he is on the steroids Time Spent With Patient Time with patient: 25 - 35 minutes Subjective Date/time seen: 01/19/21 15:58 Interval history: Pt is a 40-year-old male here for COVID pneumonia. patient seen today and states he is feeling better compared to when he was admitted. He has no shortness of breath at rest but does feel some dyspnea on exertion when walking to the bathroom. His diarrhea has stopped and he has not had a diarrhea episode today. He is eating and drinking well. No nausea, vomiting, fevers, chills, chest pain, abdominal pain or leg swelling. He does not take vitamins since his gastric bypass. Review of Systems Review of Systems: All systems reviewed & are unremarkable except as noted in HPI and below Exam Narrative: Exam Narrative: General: Well developed well nourished patient in NAD HEENT: normocephalic Neck: supple Neuro: Alert and oriented x4 CV:RRR Resp: Slightly decreased breath sounds with mild crackles with 3 L of oxygen. No conversational dyspnea or retractions. Abd: Soft, non distended. No pain to palpation. Positive bowel sounds Extremities: No swelling, erythema, or pain to palpation. Objective Data Vital Signs Vital Signs: Vital Signs - 24 hr 01/18/21 16:00 01/18/21 20:00 01/18/21 21:32 Temperature 97.6 F 97.6 F Pulse Rate 65 71 83 Respiratory Rate 16 20 18 Blood Pressure 133/75 143/79 H Pulse Oximetry 93 92 01/18/21 21:42 01/18/21 21:48 01/19/21 00:00 Temperature 97.9 F Pulse Rate 82 83 67 Respiratory Rate 18 18 Blood Pressure 134/68 Pulse Oximetry 95 93 01/19/21 02:47 01/19/21 03:04 01/19/21 04:00 Temperature 97.2 F L Pulse Rate 75 75 58 L Respiratory Rate 18 18 18 Blood Pressure 123/67 Pulse Oximetry 93 01/19/21 08:00 01/19/21 09:43 01/19/21 09:52 Temperature 97.5 F L Pulse Rate 74 74 77 Respiratory Rate 18 18 18 Blood Pressure 136/70 Pulse Oximetry 92 91 01/19/21 12:00 01/19/21 15:29 01/19/21 15:39 Temperature 97.2 F L Pulse Rate 74 68 74 Respiratory Rate 20 20 20 Blood Pressure 145/77 H Pulse Oximetry 94 Intake/Output Intake/Output: Intake & Output 0
[2021-01-19 18:15] LABS: Glucose Point of Care 264 mg/dl (65-105)
[2021-01-19] MEDS: INSULIN ASPART (*BKC) 100 UNITS/ML SUB-Q (18:24)
[2021-01-19] MEDS: REMDESIVIR 100 MG/NS 250 ML 100 MG/250 ML BAG 250 MG IVPB (21:52)
[2021-01-19 22:05] LABS: Glucose Point of Care 293 mg/dl (65-105)
[2021-01-20] VITALS (16 sets, daily range): BP systolic 121–140; BP diastolic 48–79; PULSE 53–92; RESP 16–20; TEMP 36.3–36.6; O2SAT 92–97
[2021-01-20] MEDS: ALBUTEROL SULFATE NEB 2.5 MG/0.5 ML INH INHALATION ×3 (03:16→20:18)
[2021-01-20] MEDS: IPRATROPIUM BR 0.02% INH SOLN 0.5 MG/2.5 ML VIAL INHALATION ×3 (03:17→20:18)
[2021-01-20 07:21] LABS: Hematocrit 46.3 % (42.0-52.0); Hemoglobin 14.6 g/dL (14.0-18.0); Mean Corpuscular HGB Conc 31.5 g/dl (32-36); Mean Corpuscular Hemoglobin 31.1 pg (26-34); Mean Corpuscular Volume 98.5 fl (80-100); Platelet Count Result 171 k/mm3 (150-375); Red Cell Distribution Width 12.7 % (11.5-14.5); White Blood Count 5.3 K/mm3 (4.5-10.0)
[2021-01-20 07:32] LABS: INR 1.2; Prothrombin Time 15.4 Seconds (11.1-14.7)
[2021-01-20 08:35] LABS: Glucose Point of Care 227 mg/dl (65-105)
[2021-01-20 08:42] LABS: Folic Acid 5.4 ng/mL (2.76->20)
[2021-01-20] MEDS: BENZONATATE 100 MG CAPSULE PO ×3 (09:43→18:36)
[2021-01-20] MEDS: FAMOTIDINE 10 MG TABLET PO ×2 (09:43→22:02)
[2021-01-20] MEDS: ASCORBIC ACID 250 MG TABLET PO (09:43)
[2021-01-20] MEDS: ZINC SULFATE 220 MG CAPSULE PO (09:43)
[2021-01-20] MEDS: INSULIN ASPART (*BKC) 100 UNITS/ML SUB-Q ×3 (09:44→18:36)
[2021-01-20] MEDS: ENOXAPARIN 40 MG/0.4 ML SYRINGE SUB-Q ×2 (09:44→22:02)
[2021-01-20 10:00] LABS: Alanine Aminotransferase 93 U/L (4-50); Albumin Level 3.1 g/dL (3.5-5.1); Alkaline Phosphatase 61 U/L (38-126); Anion Gap 8 mmol/L (8-16); Aspartate Amino Transferase 66 U/L (17-59); Bilirubin,Total 0.6 mg/dL (0.2-1.3); Blood Urea Nitrogen 16 mg/dL (9-20); CRP 1.5 mg/dL (<1.0); Calcium 8.4 mg/dL (8.4-10.2); Carbon Dioxide 24 mmol/L (22-30); Chloride 104 mmol/L (98-107); Estimated CRCL calculation 189 ml/min; Estimated Glomerular Filt Rate > 60; Glucose 248 mg/dL (75-110); Lactate Dehydrogenase 1516 U/L (313-618); Potassium 4.7 mmol/L (3.4-5.0); Sodium 136 mmol/L (137-145)
[2021-01-20 11:01] LABS: Iron 88 ug/dL (49-181)
[2021-01-20 11:11] LABS: Percent Iron Saturation 31 % (20-50)
[2021-01-20 12:40] LABS: Glucose Point of Care 256 mg/dl (65-105)
--- NOTE | 2021-01-20 14:38 | PM.IMPN ---
Progress Note: A&P Assessment and Plan (1) Pneumonia due to 2019-nCoV: Code(s): U07.1 - COVID-19; J12.82 - Pneumonia due to coronavirus disease 2019 Status: Acute Assessment and Plan: Pt tested positive 01/08/21 and came in on 01/16/21 for worsening SOB requiring o2 -Continue remdesivir (last dose tonight), decadron, and lovenox -Continue o2 to keep o2 >90. He is currently on 3L of o2. Will wean o2 -home o2 in the next day or two. Anticipate d/c soon if he can get off o2 -Continue breathing treatments -Pt unvaccinated but plans on getting the vaccine in 3 months after acute infection -PE unlikely, d-dimer barely elevated and trending down. Consider CTA if pt worsens. (2) Acute respiratory failure with hypoxia: Code(s): J96.01 - Acute respiratory failure with hypoxia Status: Acute Assessment and Plan: 2/2 to above -continue O2 (3) Elevated transaminase level: Code(s): R74.01 - Elevation of levels of liver transaminase levels Status: Acute Assessment and Plan: Likely due to acute COVID infection -Monitor while on remdesivir -trending down (4) Elevated d-dimer: Code(s): R79.89 - Other specified abnormal findings of blood chemistry Status: Acute Assessment and Plan: As noted above (5) H/O gastric bypass: Code(s): Z98.84 - Bariatric surgery status Status: Acute Assessment and Plan: Pt needs to continue vitamin supplementation -Iron and b12 normal (6) Anxiety: Code(s): F41.9 - Anxiety disorder, unspecified Status: Acute Assessment and Plan: Chronic and stable (7) Hyperglycemia: Code(s): R73.9 - Hyperglycemia, unspecified Status: Acute Assessment and Plan: Elevated to 256 this morning with an A1c of 5.9 -likely due to steroids and acute illness -will do SSI while he is on the steroids and start lantus tonight (8) Bradycardia: Code(s): R00.1 - Bradycardia, unspecified Status: Acute Assessment and Plan: Pt hr dips down to 48 when sleeping. He states he has a hx of sleep apnea but no longer needs cpap due to weight loss sx. Could be worsened by Remdesivir. No symptoms of this. Will monitor on tele Subjective Date/time seen: 01/20/21 14:38 Interval history: Pt is a 40-year-old male here for COVID pneumonia. patient seen today and states he is feeling better and wants to go home. He has no shortness of breath at rest or with exertion today. He is still requiring o2 and his cough is improving. His diarrhea has stopped and he has not had a diarrhea episode today. He is eating and drinking well. No nausea, vomiting, fevers, chills, chest pain, abdominal pain or leg swelling. He does not take vitamins since his gastric bypass. Exam Narrative: Exam Narrative: General: Well developed well nourished patient in NAD HEENT: normocephalic Neck: supple Neuro: Alert and oriented x4 CV:RRR Resp: Slightly decreased breath sounds with mild crackles with 3 L of oxygen. No conversational dyspnea or retractions. Abd: Soft, non distended. No pain to palpation. Positive bowel sounds Extremities: No swelling, erythema, or pain to palpation. Objective Data Vital Signs Vital Signs: Vital Signs - 24 hr 01/19/21 15:29 01/19/21 15:39 01/19/21 16:00 Temperature 98.0 F Pulse Rate 68 74 64 Respiratory Rate 20 20 20 Blood Pressure 134/74 Pulse Oximetry 95 01/19/21 20:00 01/19/21 21:57 01/19/21 22:09 Temperature 97.2 F L Pulse Rate 67 67 70 Respiratory Rate 20 20 16 Blood Pressure 141/81 H Pulse Oximetry 92 01/20/21 00:00 01/20/21 01:31 01/20/21 03:25 Temperature 97.3 F L Pulse Rate 59 L 58 L Respiratory Rate 18 20 Blood Pressure 137/73 Pulse Oximetry 95 92 01/20/21 03:36 01/20/21 04:00 01/20/21 08:00 Temperature 97.5 F L 97.8 F Pulse Rate 60 56 L 63 Respiratory Rate 16 20 20 Blood Pressure 136/56
[2021-01-20 18:10] LABS: Glucose Point of Care 270 mg/dl (65-105)
[2021-01-20] MEDS: REMDESIVIR 100 MG/NS 250 ML 100 MG/250 ML BAG 250 MG IVPB (22:02)
[2021-01-20] MEDS: INSULIN GLARGINE (*BKC) 100 UNITS/ML 6 UNITS SUB-Q (22:02)
[2021-01-20 22:20] LABS: Glucose Point of Care 293 mg/dl (65-105)
[2021-01-21] VITALS (14 sets, daily range): BP systolic 128–142; BP diastolic 74–84; PULSE 55–671; RESP 16–20; TEMP 36.5–36.9; O2SAT 89–97
[2021-01-21] MEDS: IPRATROPIUM BR 0.02% INH SOLN 0.5 MG/2.5 ML VIAL INHALATION ×3 (02:26→14:33)
[2021-01-21] MEDS: ALBUTEROL SULFATE NEB 2.5 MG/0.5 ML INH INHALATION ×3 (02:26→14:33)
--- NOTE | 2021-01-21 07:58 | PC.NURSE ---
Charting and med pass was done in error under Jacqueline Walker on 01/20/21 from 1900 - 2099 by Sadia Kyle RN
[2021-01-21] MEDS: BENZONATATE 100 MG CAPSULE PO ×2 (09:00→12:24)
[2021-01-21] MEDS: ZINC SULFATE 220 MG CAPSULE PO (09:01)
[2021-01-21] MEDS: ENOXAPARIN 40 MG/0.4 ML SYRINGE SUB-Q (09:01)
[2021-01-21] MEDS: FAMOTIDINE 10 MG TABLET PO (09:01)
[2021-01-21] MEDS: ASCORBIC ACID 250 MG TABLET PO (09:01)
[2021-01-21 09:13] LABS: Glucose Point of Care 183 mg/dl (65-105)
[2021-01-21 12:14] LABS: Glucose Point of Care 257 mg/dl (65-105)
[2021-01-21] MEDS: INSULIN ASPART (*BKC) 100 UNITS/ML SUB-Q (12:24)
--- NOTE | 2021-01-21 15:46 | PM.DS ---
DS: Admitting Diagnosis Admitting Diagnosis Admitting Diagnosis: covid pna DS: Discharge Diagnosis Discharge Diagnosis (1) Pneumonia due to 2019-nCoV: Code(s): U07.1 - COVID-19; J12.82 - Pneumonia due to coronavirus disease 2018 Status: Acute Assessment and Plan: Pt tested positive 01/08/21 and came in on 01/16/21 for worsening SOB requiring o2 -Pt received remdesivir (5 doses), decadron, and lovenox -Pt was able to be weaned off o2. Home o2 evaluation showed no o2 needs at discharge -Continue albuterol inhaler as needed -Pt unvaccinated but plans on getting the vaccine in 3 months after acute infection -PE unlikely, d-dimer barely elevated and trending down. (2) Acute respiratory failure with hypoxia: Code(s): J96.01 - Acute respiratory failure with hypoxia Status: Acute Assessment and Plan: 2/2 to above -resolved (3) Elevated transaminase level: Code(s): R74.01 - Elevation of levels of liver transaminase levels Status: Acute Assessment and Plan: Likely due to acute COVID infection -trending down (4) Elevated d-dimer: Code(s): R79.89 - Other specified abnormal findings of blood chemistry Status: Acute Assessment and Plan: As noted above (5) H/O gastric bypass: Code(s): Z98.84 - Bariatric surgery status Status: Acute Assessment and Plan: -Iron and b12 normal (6) Anxiety: Code(s): F41.9 - Anxiety disorder, unspecified Status: Acute Assessment and Plan: Chronic and stable (7) Hyperglycemia: Code(s): R73.9 - Hyperglycemia, unspecified Status: Acute Assessment and Plan: Elevated to 257 with an A1c of 5.9 -likely due to steroids and acute illness -f/u with pcp (8) Bradycardia: Code(s): R00.1 - Bradycardia, unspecified Status: Acute Assessment and Plan: Pt hr dips down to 48 when sleeping. He states he has a hx of sleep apnea but no longer needs cpap due to weight loss sx. Could be worsened by Remdesivir. No symptoms of this. DS: Summary Hospital Course Hospital Course: patient is a 40-year-old male with a history prediabetes, weight loss surgery, and GERD who is unvaccinated who presented emergency room for shortness of breath after being diagnosed with COVID-19 the week prior. vitals in the ER were temperature 99.6?, pulse 106, respiratory rate 18, blood pressure 131/93, pulse ox 91. CBC within normal limits. BMP showed a random glucose of 147. Chest x-ray showing extensive patchy bilateral pulmonary infiltrates consistent with bilateral pneumonia due to COVID-19. Patient was placed on oxygen and admitted to the hospitalist service. He was started on Remdesivir and received 5 days of this, Decadron and Lovenox to prevent blood clots. He improved on this treatment. His D-dimer was barely elevated and trended down. No PE suspected. Patient improved day by day and was able to be weaned off oxygen. He had a home oxygen evaluation the day of discharge which did not show any requirement for oxygen at this time. He was given steroids and albuterol at discharge. He was educated about The worrisome signs and symptoms to come back to emergency room for and was discharged in stable condition. Follow-up with PCP in 1-2 weeks Status at Discharge Functional status at discharge: independent ambulation Overall status at discharge: patient is progressing back to baseline Time Spent with Patient Time attestation: Total time spent providing and/or coordinating discharge services:42 min Time spent: Greater than 30 minutes Exam Narrative: Exam Narrative: General: Well developed well nourished patient in NAD HEENT: normocephalic Neck: supple Neuro: Alert and oriented x4 CV:RRR Resp: slightly decreased breath sounds, no wheezing or rhonchi. No conversational dyspnea. On room air Abd: Soft, non distended. No pain to palpation. Pos
== END 2021-01-21 16:15 | disposition home or self-care (01) | DRG 137 ==
LOC: ANHED 16:40 → ANH3MEDSUR 16:46
PROVIDERS: Internal Medicine; Nurse Practitioner; Admitting Provider Family Medicine; Emergency Provider Emergency Medicine; PCP Family Medicine; Visit Provider Physician Assistant
DX: U07.1 COVID-19 (principal); J12.82 Pneumonia due to coronavirus disease 2019; Z98.84 Bariatric surgery status; J96.01 Acute respiratory failure with hypoxia; E66.9 Obesity, unspecified; Z68.41 Body mass index [BMI] 40.0-44.9, adult; F41.9 Anxiety disorder, unspecified
CPT/HCPCS: 36415; 71046; 80048; 80053; 80076; 82565; 82607; 82728; 82746; 82948; 83036; 83540; 83550; 83615; 83735; 84460; 85025; 85027; 85380; 85610; 86140; 93005; 94618; 94640; 96374; 96375; 99285; A9270; G0378; G0379; J1100; J1650; J1815; J2405